=== PATIENT | female | born 1935 | race Caucasian/White ===

== ENCOUNTER 2016-12-20 16:14 | Outpatient (CLI) | payer OTHER | END 2016-12-20 16:15 | LOC: LABRHC 16:14 | PROVIDERS: ATTEND Physician Assistant | DX: N30.00 Acute cystitis without hematuria (principal) | CPT/HCPCS: 87086 ==

== ENCOUNTER 2017-01-26 17:00 | Outpatient (CLI) | payer OTHER ==
--- NOTE | 2017-01-27 07:16 | Diagnostic Imaging Report ---
CODY MIJARES~ [facility] [address] [facility].[address] [address] ~ ~ ~ ~ Report Submission Date: Jan 26, 2017 6:35:49 PM CDT Patient ~ Study Name: DUNCAN LIVE ~ Date: Jan 26, 2017 5:10:54 PM CDT ~ Modality Type: CR Gender: F ~ Description: CHEST : 35 ~ Institution: [facility] Physician: CODY MIJARES ~ ~ ~ ~ Chest, PA and lateral History: Cough, weakness Findings: No infiltrate, effusion or pneumothorax is present. Heart size and pulmonary vascularity are normal. Impression: No active disease. ~ Electronically signed on Jan 26, 2017 6:35:49 PM CDT by: Ricardo OLVERA
== END 2017-01-26 17:03 ==
LOC: RAD 17:00
PROVIDERS: ATTEND Family Medicine
DX: R05 Cough (principal)
CPT/HCPCS: 71020

== ENCOUNTER 2017-06-20 10:28 | Outpatient (CLI) | payer OTHER ==
[2017-06-20 10:43] LABS: APPEARANCE,URINE Clear (CLEAR); COLOR,URINE Yellow (YELLOW); OCCULT BLOOD,URINE Trace-intact (NEGATIVE)
[2017-06-20 11:08] LABS: AMORPHOUS SEDIMENT,UR FEW (NEGATIVE)
== END 2017-06-20 10:30 ==
LOC: LAB 10:28
PROVIDERS: ATTEND Physician Assistant
DX: N30.00 Acute cystitis without hematuria (principal)
CPT/HCPCS: 81002; 87086

== ENCOUNTER 2017-06-28 12:11 | Outpatient (CLI) | payer OTHER ==
[2017-06-28 13:39] LABS: APPEARANCE,URINE Clear (CLEAR); COLOR,URINE Yellow (YELLOW); OCCULT BLOOD,URINE Trace-intact (NEGATIVE)
[2017-06-28 13:50] LABS: AMORPHOUS SEDIMENT,UR FEW (NEGATIVE)
== END 2017-06-28 12:12 ==
LOC: LAB 12:11
PROVIDERS: ATTEND Family Medicine
DX: R30.0 Dysuria (principal)
CPT/HCPCS: 81002; 87086

== ENCOUNTER 2017-09-14 14:24 | Observation (INO) | payer OTHER ==
[2017-09-14 10:39] LABS: BASOPHILS % 1.2 (0.0-1.5); EOSINOPHILS % 7.8 % (0.0-6.8); MONOCYTES % 6.1 % (0.0-11.0); NEUTROPHILS # 3.2 # k/uL (1.4-7.7)
[2017-09-14 10:42] LABS: MEAN CORPUSCULAR HEMOGLOBIN 19.3 pg (28.0-34.0)
[2017-09-14 10:55] LABS: eGFR (African) > 60; eGFR (Non-African) > 60
[2017-09-14 11:10] LABS: HYPOCHROMASIA 3+ (NEGATIVE); STOMATOCYTES 1+ (NEGATIVE)
[2017-09-14] MEDS ORDERED: ACETAMINOPHEN 325 MG TABLET PO PRN (15:57)
[2017-09-14] MEDS ORDERED: diphenhydrAMINE HCL 25 MG TABLET PO PRN ×2 (15:58→16:03)
[2017-09-14] MEDS ORDERED: 0.9 % SODIUM CHLORIDE 500 ML IV SCH (16:00)
[2017-09-14] MEDS ORDERED: SALINE FLUSH 10 ML DISP.SYRIN IVF PRN (16:01)
[2017-09-14] MEDS: ACETAMINOPHEN 325 MG TABLET PO PRN ×2 (16:24→23:05)
[2017-09-14 19:31] LABS: VITAMIN D, 25-HYDROXY 29 ng/mL (30-100)
[2017-09-15 09:38] VITALS: BP 132/64
[2017-09-15 10:18] VITALS: BMI 28.5
[2017-09-15 11:00] LABS: BASOPHILS % 0.9 (0.0-1.5); MEAN CORPUSCULAR HEMOGLOBIN 21.3 pg (28.0-34.0); MONOCYTES % 6.2 % (0.0-11.0); NEUTROPHILS # 3.8 # k/uL (1.4-7.7)
--- NOTE | 2017-09-19 06:47 | Discharge Summary ---
Discharge Summary - Discharge Sumary History of Present Illness: 82-year-old white female who recently has suffered a CVA. As a consequence of this patient did developing diabetes thrombosis with pulmonary observation. Patient was started on anticoagulation therapy. On the day of admission patient came to the office complaining of generalized weakness increase lethargy and poor exercise tolerance. Patient had blood work drawn which did show a markedly decreased hemoglobin of 6.3. Because patient was symptomatic patient was admitted for transfusion of two units of packed RBCs. Condition at Discharge: Stable Home Medications: Ambulatory Orders Medication Instructions Recorded Acetaminophen [Tylenol Extra 500 mg PO BID 09/14/17 Strength] Aspirin [Adult Low Dose Aspirin EC] 81 mg PO DAILY 09/14/17 Allergies/Adverse Reactions: Allergies Allergy/AdvReac Type Severity Reaction Status Date / Time No Known Allergies Allergy Verified 09/14/17 15:39 Discharge Summary: Patient was transfused two units of packed RBCs. Patient was premeditated with acetaminophen and Benadryl. Patient did not have any transfusion reactions.Post transfusion patient hemoglobin came up to 7.9. - Final Diagnosis (1) Iron deficiency anemia Problems: Iron studies pending at time of discharge. (2) Pulmonary embolism Problems: stable (3) Status post cerebrovascular accident Problems: stable (4) COPD (chronic obstructive pulmonary disease) Problems: stable
--- NOTE | 2017-09-19 06:49 | History and Physical Report ---
History of Present Illnes - History of Present Illness Reason for Visit: anemia History of Present Illness: 82-year-old white female who recently has suffered a CVA. As a consequence of this patient did developing diabetes thrombosis with pulmonary observation. Patient was started on anticoagulation therapy. On the day of admission patient came to the office complaining of generalized weakness increase lethargy and poor exercise tolerance. Patient had blood work drawn which did show a markedly decreased hemoglobin of 6.8. Because patient was symptomatic patient was admitted for transfusion of two units of packed RBCs. 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) Gastrointestinal: Diverticulosis, Gastritis - Past Surgical History Past Surgical History: Cholecystectomy, Other (breast bx, skin cancer removed, foot surgery) - Past Family History Mother Family History: Father Family History: - Past Social History Smoke: No Occupation: retired Alcohol: None Drugs: None Lives: With Family Domestic Violence: Negative - Health Maintenance Health Maintenance: Cholesterol, Influenza Vaccine, Pneumococcal Vaccine Influenza Vaccine: Current for this Influenza Season Pneumonia Vaccine: Yes Resuscitation Status: Resusciation Status Resuscitation Status Full Code - Unable to Obtain History Unable to Obtain: No Review of Systems - Review of Systems Constitutional: Weakness. negative: Fever, Chills, Sweats Eyes: negative: pain, vision change ENT: negative: Ear Pain, Ear Discharge, Nose Pain, Nose Discharge, Nose Congestion, Mouth Pain Respiratory: Shortness of Breath. negative: Cough, Dry, Hemoptysis, SOB with Excertion, Pleuritic Pain Cardiovascular: negative: Chest Pain, Palpitations Gastrointestinal: negative: Nausea, Vomiting, Abdominal Pain, Diarrhea, Constipation, Melena, Hematochezia Genitourinary: negative: Dysuria, Frequency, Incontinence, Hematuria Musculoskeletal: Back Pain Skin: negative: Rash, Lesions Neurological: Weakness (left sided at baseline). negative: Numbness, Incoordination, Change in Speech (mild slurred from CVA) - Medications/Allergies Allergies/Adverse Reactions: Allergies Allergy/AdvReac Type Severity Reaction Status Date / Time No Known Allergies Allergy Verified 09/14/17 15:39 Home Medications: Home Medications Acetaminophen [Tylenol Extra Strength] 500 mg PO BID 09/14/17 Aspirin [Adult Low Dose Aspirin EC] 81 mg PO DAILY 09/14/17 Exam - Exam General: Alert, Oriented to Person, Oriented to Place, Oriented to Time, Cooperative, Mild distress HEENT: Atraumatic, PERRLA, Dentition Normal, Hearing Grossly Normal. No: Mouth Mucous membr. moist/[place] (pale) Neck: No: Stridor Carotids: WNL Thyroid: WNL Lungs: Clear to auscultation, Normal air movement, Speaks full Sentences, Respiratory Distress. No: Wheezes, Rales, Rhonchi Cardiovascular: Regular rate, Normal S1, Normal S2, No murmurs. No: Gallops, Rubs Abdomen: Normal bowel sounds, Soft, No tenderness, No hepatospenomegaly, No masses. No: Distended Integumentary: [place] (pale), Warm, Dry, Pale Extremities: No clubbing, No cyanosis, No edema Neurological: Normal tone, Sensation intact, Left Sided Weakness. No: Normal speech (slightly slurred at baseline), Strength Equal Bilat (left weakness at baseline), Cranial nerves 3-12 NL (left facial dropping at baseline) Psych/Mental Status: Mental status NL - Laboratory Results Laboratory Results: Laboratory Results 09/14/17 09/14/17 09/14/17 10:27 10:27 10:27 WBC 5.30 RBC 3.28 L Hgb 6.3 L* Hct 26.9 L MCV 82.0 MCH 19.3 L MCHC 23.5 L RDW 15.8 H Plt Count 515 H Neut % (Auto) 61.0 Lymph % (Auto) 22.6 [place] % (Auto) 6.1 Eos % (Auto) 7.8 H Baso % (Auto) 1.2 Neut # (Auto) 3.2 Lymph # (Auto) 1.2 [place] # (Auto) 0.3 Eos # (Auto) 0.4 Baso # (Auto) 0.1 Reactive Lymphs % 1.2 Reactive Lymphs # 0.1 Plt Morphology Comment Normal Polychromasia 1+ H Hypochromasia 3+ H Stomatocytes 1+ H RBC Morph Comment Abnormal H Sodium 143 Potassium 4.2 Chloride 100 Carbon Dioxide 29 BUN 10 Creatinine 0.70 Est GFR ( Amer) > 60 Est GFR (Non-Af Amer) > 60 Glucose 92 Calcium 9.7 Total Bilirubin 0.7 AST 22 ALT 21 Alkaline Phosphatase 93 Total Protein 6.7 Albumin 3.7 Triglycerides Cholesterol LDL Cholesterol, Calc HDL Cholesterol LDL/HDL Ratio Cholesterol/HDL Ratio Lipid Phenotype Vitamin B12 25-OH Vitamin D Total TSH 1.960 Free T4 Index 1.02 Free T3 Index 2.61 09/14/17 09/14/17 09/15/17 10:27 10:27 10:40 WBC 6.00 RBC 3.72 L Hgb 7.9 L Hct 30.5 L MCV 82.0 MCH 21.3 L MCHC 26.0 L RDW 15.4 H Plt Count 418 H Neut % (Auto) 62.7 Lymph % (Auto) 22.7 [place] % (Auto) 6.2 Eos % (Auto) 6.0 Baso % (Auto) 0.9 Neut # (Auto) 3.8 Lymph # (Auto) 1.4 [place] # (Auto) 0.4 Eos # (Auto) 0.4 Baso # (Auto) 0.0 Reactive Lymphs % 1.6 Reactive Lymphs # 0.1 Plt Morphology Comment Polychromasia Hypochromasia Stomatocytes RBC Morph Comment Sodium Potassium Chloride Carbon Dioxide BUN Creatinine Est GFR ( Amer) Est GFR (Non-Af Amer) Glucose Calcium Total Bilirubin AST ALT Alkaline Phosphatase Total Protein Albumin Triglycerides 87 Cholesterol 127 LDL Cholesterol, Calc 53 HDL Cholesterol 57 LDL/HDL Ratio 0.93 Cholesterol/HDL Ratio 2.23 Lipid Phenotype Normal Vitamin B12 374 25-OH Vitamin D Total 29 L TSH Free T4 Index Free T3 Index Assessment/Plan - Assessment/Plan (1) Iron deficiency anemia Status: Acute Qualifiers: Iron deficiency anemia type: unspecified iron deficiency Qualified Code(s) : D50.9 - Iron deficiency anemia, unspecified Assessment: Patient will be transfused 2 untis of PRBC (2) Status post cerebrovascular accident Status: Acute Assessment: stable (3) Pulmonary embolism Status: Acute Assessment: on anticoagulation therapy (4) DVT (deep venous thrombosis) Status: Chronic Qualifiers: DVT location: lower extremity Affected thrombotic vein of extremity: femoral Laterality: unspecified laterality (5) COPD (chronic obstructive pulmonary disease) Status: Chronic Qualifiers: Emphysema type: panlobular Narrative Support Text: stable VTE Assessment - RISK FACTOR SCORE VTE RISK FACTOR SCORES: AGE OVER 60 YEARS - RISK VTE LOW RISK: SCORE OF 1 OR LESS (RISK PROXIMAL DVT 0.4%) NO PROPHYLAXIS NEEDED
== END 2017-09-15 11:38 | disposition home or self-care (01) ==
LOC: INF 14:24 → SOUTH 14:25
PROVIDERS: ADMIT Family Medicine; ATTEND Family Medicine
DX: R53.82 Chronic fatigue, unspecified (principal); I63.511 Cerebral infarction due to unspecified occlusion or stenosis of right middle cerebral artery; E55.9 Vitamin D deficiency, unspecified; N30.00 Acute cystitis without hematuria
CPT/HCPCS: 36415; 80053; 80061; 82306; 82607; 84439; 84443; 84481; 85025; 86885; 86900; 86901; 86920; 87086; G0378; J7060; Q0163; 36430; 99217; 99219; P9040; S1016

== ENCOUNTER 2017-09-22 16:25 | Outpatient (CLI) | payer OTHER ==
[2017-09-22 16:36] LABS: MEAN CORPUSCULAR HEMOGLOBIN 21.9 pg (28.0-34.0); MEAN CORPUSCULAR VOLUME 83.4 fl (80.0-100.0)
[2017-09-22 16:47] LABS: BASOPHILS % 3 % (0-2); EOSINOPHILS % 9 % (0-7); MONOCYTES % 4 % (0-11); SEGMENTED NEUTROPHILS % 58 % (39-79)
[2017-09-22 16:48] LABS: ANISOCYTOSIS 1+ (NEGATIVE); HYPOCHROMASIA 2+ (NEGATIVE); PLT EST. EST. AGREES W/PLT CT; TARGET CELLS 1+ (NEGATIVE)
[2017-09-23 14:51] LABS: IRON SERUM 34 ug/dL (37-145); SERUM IRON 34 ug/dL (37-145)
== END 2017-09-22 16:26 ==
LOC: LABRHC 16:25
PROVIDERS: ATTEND Family Medicine
DX: D50.9 Iron deficiency anemia, unspecified (principal)
CPT/HCPCS: 83540; 83550; 85025

== ENCOUNTER 2017-10-03 08:05 | Outpatient (CLI) | payer OTHER ==
[2017-10-03 08:25] LABS: APPEARANCE,URINE Clear (CLEAR); COLOR,URINE Yellow (YELLOW); OCCULT BLOOD,URINE Negative (NEGATIVE)
== END 2017-10-03 08:06 ==
LOC: LAB 08:05
PROVIDERS: ATTEND Family Medicine
DX: N30.01 Acute cystitis with hematuria (principal)
CPT/HCPCS: 81002; 87086; 87186

== ENCOUNTER 2017-10-17 07:00 | Day surgery (SDC) | payer OTHER ==
--- NOTE | 2017-10-18 14:30 | GI Report ---
REFERRING PHYSICIAN: Dr. Manpreet Castaneda ENVIRONMENTAL EPIDEMIOLOGIST: Tom East MD PROCEDURE MEDICATION: Propofol as per anesthesia. INDICATIONS: Patient is an 82-year-old woman who had a stroke earlier this year. She was in the hospital and was found to be significantly anemic with a hemoglobin of 6.8. She received 2 units of blood transfusion. Her iron was very low. She denies change in her stools. Her stools are dark but she has been on iron tablets. She denies abdominal pain. She has had weight loss unexplained. She is referred. Her last colonoscopy was with Dr. Duggan somewhere between 5 and 10 years ago. Because of the weight loss and anemia, she is referred at this time for an evaluation. PROCEDURE PERFORMED: Colonoscopy. PROCEDURE: An Olympus video colonoscope was advanced into the rectum. The patient does have extensive diverticular disease in the sigmoid and descending colon. It took some maneuvering to slowly get through that area. Her prep, she had not stopped taking her iron tablets, so there was some dark material throughout the whole colon. We slowly advanced to the cecum. A very atonic redundant colon. It did take some nurse compression and rotating to a supine position and a lift in the sigmoid. We finally reached the cecum. The appendiceal orifice was normal. The terminal ileum was normal. No obvious bleeding site. On slow withdrawal, the cecum, ascending colon, and transverse colon had a lot of redundancy. No obvious intraluminal lesions noted. The descending colon and sigmoid colon with extensive diverticular disease. No obvious intraluminal lesions were noted. Retroflexion of the rectum shows hemorrhoids. Patient tolerated the procedure well. FINDINGS: 1. Severe diverticular disease of sigmoid and descending colon. 2. A very atonic redundant colon. 3. No obvious bleeding site to the cecum or terminal ileum. RECOMMENDATIONS: 1. Increase fiber in her diet. 2. Consider upper GI evaluation because of the anemia and iron deficiency. 3. At 82, she probably does not need a follow up screening colonoscopy. One would do a diagnostic colonoscopy if she developed change in bowel habits, bleeding, pain, etc. cc: Dr. Mapnreet OLVERA
== END 2017-10-17 07:02 ==
LOC: OPSURG 07:00
PROVIDERS: ATTEND Internal Medicine Gastroenterology
DX: K57.30 Diverticulosis of large intestine without perforation or abscess without bleeding (principal); D64.9 Anemia, unspecified; R63.4 Abnormal weight loss
CPT/HCPCS: J2704; J7120; 45378; S1016

== ENCOUNTER 2017-11-23 08:51 | Outpatient (CLI) | payer OTHER ==
[2017-11-23 09:15] LABS: BASOPHILS % 0.8 (0.0-1.5); EOSINOPHILS % 10.4 % (0.0-6.8); MEAN CORPUSCULAR HEMOGLOBIN 27.1 pg (28.0-34.0); MEAN CORPUSCULAR VOLUME 93.9 fl (80.0-100.0); MONOCYTES % 4.9 % (0.0-11.0); NEUTROPHILS # 2.5 # k/uL (1.4-7.7)
== END 2017-11-23 08:53 ==
LOC: LAB 08:51
PROVIDERS: ATTEND Family Medicine
DX: D50.0 Iron deficiency anemia secondary to blood loss (chronic) (principal)
CPT/HCPCS: 36415; 83540; 85025

== ENCOUNTER 2018-02-22 08:54 | Outpatient (CLI) | payer OTHER ==
[2018-02-22 09:53] LABS: eGFR (African) > 60; eGFR (Non-African) > 60
[2018-02-22 10:28] LABS: BASOPHILS % 0.7 (0.0-1.5); EOSINOPHILS % 3.2 % (0.0-6.8); MEAN CORPUSCULAR HEMOGLOBIN 30.3 pg (28.0-34.0); MONOCYTES % 5.8 % (0.0-11.0)
== END 2018-02-22 08:56 ==
LOC: LAB 08:54
PROVIDERS: ATTEND Family Medicine
DX: D50.9 Iron deficiency anemia, unspecified (principal)
CPT/HCPCS: 36415; 80053; 83540; 85025

== ENCOUNTER 2018-03-27 07:19 | Day surgery (SDC) | payer OTHER ==
[2018-03-27] MEDS ORDERED: PROPOFOL 200 MG/20 ML VIAL IV ONE (09:00)
[2018-03-27] MEDS ORDERED: SALINE FLUSH 10 ML DISP.SYRIN IVF ONE (09:00)
[2018-03-27] MEDS ORDERED: LACTATED RINGERS 1,000 ML IV.SOLN IV ONE (09:00)
[2018-03-27] MEDS ORDERED: LIDOCAINE HCL/PF 2% 100 MG/5 ML VIAL IJ ONE (09:00)
--- NOTE | 2018-03-28 10:51 | GI Report ---
REFERRING PHYSICIAN: Dr. Manpreet Castaneda CEMENT [place] MAINTENANCE: Tom East MD PROCEDURE MEDICATION: Propofol as per anesthesia. INDICATIONS: This is an 83-year-old woman who has had anemia. She did have her colon looked at back in September of this year and had severe diverticular disease but no obvious bleeding site to the cecum or terminal ileum. She did have a stroke earlier in the year and is taking aspirin daily. She denies much heartburn or indigestion. She is referred for an endoscopy because of questionable site of blood loss. PROCEDURE PERFORMED: Endoscopy and biopsies. PROCEDURE: An Olympus video endoscope is passed through the esophagus under direct visualization. She has a short esophagus. She has a 5 cm hiatal hernia. She has maybe grade 1 esophagitis at the GE junction. Again, 5 to 6 cm of the stomach is up in the chest. She has kind of severe diffuse gastritis with erythema and friability. Biopsies were taken for pathology. Duodenal bulb and first and second part of the duodenum also were friable and irritated with patchy areas of what appeared to be villous atrophy. We did take random biopsies to rule out celiac disease. Patient tolerated the procedure well. FINDINGS: 1. Large hiatal hernia. 2. Moderate to severe gastritis, biopsies taken. 3. Atrophic duodenitis, biopsies pending. RECOMMENDATION: 1. With a large hernia, would have her sleep with her bed elevated at least 3 inches. 2. With all the bile gastritis, would have her take an antacid like Gaviscon at bedtime. 3. Would have her take a low-dose PPI, like omeprazole, just once a day before her first meal. 4. Small frequent meals. 5. She should follow up with Dr. Castaneda. cc: Dr. Manpreet OLVERA
== END 2018-03-27 07:20 ==
LOC: OPSURG 07:19
PROVIDERS: ATTEND Internal Medicine Gastroenterology
DX: D50.0 Iron deficiency anemia secondary to blood loss (chronic) (principal); K44.9 Diaphragmatic hernia without obstruction or gangrene; K29.70 Gastritis, unspecified, without bleeding; K29.80 Duodenitis without bleeding
CPT/HCPCS: 43239; J2001; J2704; J7120; S1016

== ENCOUNTER 2018-05-26 14:29 | Outpatient (CLI) | payer OTHER ==
[2018-05-26 15:04] LABS: MEAN CORPUSCULAR HEMOGLOBIN 31.1 pg (28.0-34.0)
[2018-05-26 15:05] LABS: BASOPHILS % 0.5 (0.0-1.5); EOSINOPHILS % 7.2 % (0.0-6.8); NEUTROPHILS # 2.7 # k/uL (1.4-7.7)
[2018-05-26 15:13] LABS: eGFR (Non-African) > 60
== END 2018-05-26 14:35 ==
LOC: LAB 14:29
PROVIDERS: ATTEND Family Medicine
DX: R53.82 Chronic fatigue, unspecified (principal)
CPT/HCPCS: 36415; 80048; 85025

== ENCOUNTER 2018-09-19 13:59 | Outpatient (CLI) | payer OTHER ==
--- NOTE | 2018-09-19 15:23 | Diagnostic Imaging Report ---
CODY MIJARES [facility] [address] [address] Report Submission Date: Sep 19, 2018 3:21:32 PM MAINTENANCE WORKER MUNICIPAL Patient Study Name: DUNCAN LIVE Date: Sep 19, 2018 2:16:02 PM MAINTENANCE WORKER M[employer]ICIPAL Modality Type: US Gender: F Description: US EXTREMITY VEINS UNILAT : 35 Institution: [facility] Physician: CODY MIJARES Examination: Ultrasound right vein. History: Right upper extremity swelling Comparison exams: None provided Findings: Sonographic evaluation of the right upper extremity venous system including the internal jugular, subclavian, axillary, cephalic, brachial, basilic, radial, and ulnar veins. No evidence for luminal filling defect. Normal compressibility. Normal response to augmentation and respiratory variation. Mild soft tissue edema. Impression: No evidence for venous thrombosis. Electronically signed on Sep 19, 2018 3:21:32 PM MAINTENANCE WORKER MUNICIPAL by: Benjamin OLVERA
--- NOTE | 2018-09-19 15:46 | Diagnostic Imaging Report ---
CODY MIJARES [facility] [address] [facility].[address] [address] Report Submission Date: Sep 19, 2018 3:38:30 PM CHILD CARE DEVELOPMENT SPECIALIST Patient Study Name: DUNCAN LIVE Date: Sep 19, 2018 3:08:56 PM CHILD CARE DEVELOPMENT SPECIALIST Modality Type: DX Gender: F Description: KNEE 3 VIEWS : 35 Institution: [facility] Physician: CODY MIJARES Exam: Right knee. History: Pain. Previous stroke. AP, lateral and oblique view of the right knee are submitted. Medial compartment narrowing and sclerosis is noted. Mild spurring in the lateral compartment is also noted. Narrowing, sclerosis and spurring at the femoral patellar articulation is also seen. An anterior joint effusion is identified. Unusual configuration of the posterior soft tissues to the distal femur is seen in the lateral projection. Impression: Arthritic changes. Small anterior joint effusion is suspected. Unusual configuration of the posterior soft tissues at the distal thigh. Magnetic resonance imaging may be necessary to further evaluate. Electronically signed on Sep 19, 2018 3:38:30 PM CHILD CARE DEVELOPMENT SPECIALIST by: Osmani OLVERA
--- NOTE | 2018-09-19 15:46 | Diagnostic Imaging Report ---
CODY MIJARES [facility] [address] [address] [address] Report Submission Date: Sep 19, 2018 3:40:28 PM OUTDOOR ADVENTURE INSTRUCTOR Patient Study Name: DUNCAN LIVE Date: Sep 19, 2018 3:08:56 PM OUTDOOR ADVENTURE INSTRUCTOR Modality Type: DX Gender: F Description: WRIST 3 VIEWS OR MORE : 35 Institution: [facility] Physician: CODY MIJARES Exam: Right wrist. History: Swelling. PA, lateral oblique few of the right wrist are submitted. Subtle calcifications in the region of the triangular fibrocartilage are noted. No acute fracture or dislocation is identified. Severe narrowing, sclerosis and spurring at the first carpometacarpal joint is noted. Soft tissue swelling about the wrist is noted. Impression: Degenerative changes at the first carpometacarpal joint. Soft tissue calcination's adjacent to the triangular fibrocartilage. Soft tissue swelling. Electronically signed on Sep 19, 2018 3:40:28 PM OUTDOOR ADVENTURE INSTRUCTOR by: Osmani OLVERA
== END 2018-09-19 14:01 ==
LOC: RAD 13:59
PROVIDERS: ATTEND Family Medicine
DX: M25.561 Pain in right knee (principal); M25.531 Pain in right wrist; I82.4Y2 Acute embolism and thrombosis of unspecified deep veins of left proximal lower extremity; M79.9 Soft tissue disorder, unspecified; M18.11 Unilateral primary osteoarthritis of first carpometacarpal joint, right hand; M25.461 Effusion, right knee
CPT/HCPCS: 73110; 73562; 93971

== ENCOUNTER 2018-10-13 12:23 | Outpatient (CLI) | payer OTHER ==
[2018-10-13 13:12] LABS: BASOPHILS % 0.7 (0.0-1.5); EOSINOPHILS % 7.8 % (0.0-6.8); MEAN CORPUSCULAR HEMOGLOBIN 30.7 pg (28.0-34.0); NEUTROPHILS # 3.1 # k/uL (1.4-7.7)
== END 2018-10-13 12:24 ==
LOC: LAB 12:23
PROVIDERS: ATTEND Family Medicine
DX: D64.9 Anemia, unspecified (principal)
CPT/HCPCS: 36415; 85025